=== PATIENT | male | born 1955 | race Caucasian/White ===

== ENCOUNTER 2022-02-14 09:33 | Emergency (ER) | payer OTHER ==
[~2022-02-14] VITALS: Ht 182.9 cm; Wt 72.6 kg
--- NOTE | 2022-02-14 09:40 | NUR ---
BIB [employer] C/O WEAKNESS, RESTLESSNESS, STS "IM WIDRAWING FROM [place]". THE PATIENT IS ALERT AND ORIENTED X3. IN ROOM AIR AND OXYGEN SATURATION LEVEL IS AT 96%. RESPIRATION REGULAR AND UNLABORED. DENIES PAIN. OFFICERS AT THE BEDSIDE. WILL CONTINUE TO MONITOR THE PATIENT.
[2022-02-14] MEDS ORDERED: IV NS 0.9% 1,000 ML IV ONE (10:30)
--- NOTE | 2022-02-14 10:39 | NUR ---
IV LINE IS ESTABLISHED, BLOOD SPECIMEN COLLECTED AND SENT TO THE LAB. THE LINE IS SALINE LOCKED.
[2022-02-14 11:09] LABS: BASOPHILS % (AUTO) 0.1 % (0.0-2.0); HEMATOCRIT 46 % (39-51); HEMOGLOBIN 15.5 g/dL (13.5-17.5); LYMPHOCYTES # (AUTO) 1.3 K/uL (0.8-4.8); LYMPHOCYTES % (AUTO) 9.4 % (20.0-44.0); MEAN CORPUSCULAR HGB CONC 34 g/dl (31.0-36.0); MEAN CORPUSCULAR VOLUME 92 fL (80-96); MONOCYTES # (AUTO) 1.7 K/uL (0.1-1.30); MONOCYTES % (AUTO) 12.5 % (2.0-12.0); NEUTROPHILS # (AUTO) 10.4 K/uL (1.8-8.9); PLATELET COUNT (AUTO) 285 K/uL (150-450); RED BLOOD CELL COUNT(AUTO) 4.96 MIL/uL (4.5-6.0); WHITE BLOOD COUNT (AUTO) 13.4 K/uL (4.3-11.0)
[2022-02-14 11:26] LABS: CALCIUM, SERUM 9.4 mg/dL (8.5-10.1); CREATININE 0.9 mg/dL (0.6-1.3); POTASSIUM 3.2 mmol/L (3.5-5.1)
[2022-02-14 12:18] LABS: BILIRUBIN,URINE NEGATIVE (NEGATIVE); COLOR,URINE YELLOW (YELLOW); LEUKOCYTE ESTERASE ,URINE NEGATIVE (NEGATIVE); NITRITE, URINE POSITIVE (NEGATIVE); PH,URINE 6.5 (5.0-8.0); PROTEIN,URINE 30 mg/dl (NEGATIVE); UGLUCOSE NEGATIVE (NEGATIVE); UROBILINOGEN,URINE 0.2 EU/dL (0.2)
[2022-02-14 12:32] LABS: BACTERIA,URINE Moderate /HPF (None Seen); RBC,URINE 0-2 /HPF (0-2); SQUAMOUS EPITHELIAL CELL,UR Few /HPF (None Seen)
[2022-02-14] MEDS ORDERED: CEPH500C2 PO (13:46)
[2022-02-14] MEDS ORDERED: POTASSIUM CHLORIDE 20 MEQ TAB.PRT.SR PO ONE ×2 (13:55→14:00)
[2022-02-14] MEDS ORDERED: CEFTRIAXONE 1GM BAG (ER ONLY) 50 ML IV ONE (13:55)
[2022-02-14] MEDS ORDERED: CEFTRIAXONE 1 G in IV D5W 50 ML IV SCH (14:00)
[2022-02-14 14:10] VITALS: BP 123/72
--- NOTE | 2022-02-14 14:15 | NUR ---
IV removed. Catheter intact and site benign. Pressure and 4x4 applied to site. No bleeding noted.
--- NOTE | 2022-02-14 14:18 | NUR ---
Patient discharged to law enforcement in stable condition, accompanied by 2 Tyrese; pt ok for incarceration. Written and verbal after care instructions given. Patient verbalizes understanding of instruction.
== END 2022-02-14 13:50 ==
LOC: ER 09:40
DX: F11.23 Opioid dependence with withdrawal (principal); N39.0 Urinary tract infection, site not specified
CPT/HCPCS: 99283; 96374; 96361; 85025; 80048; 87077; 87040 ×2; 87086; 36415; 80307; 81001; J7030 ×2; J0696